=== PATIENT | male | born 1995 | race Caucasian/White ===

== ENCOUNTER 2017-08-27 05:16 | Emergency (ER) | payer OTHER ==
[2017-08-27 05:26] VITALS: BP 146/90; PULSE 100; TEMP 98.2; BMI 39.0
[2017-08-27] MEDS ORDERED: KETOROLAC TROMETHAMINE 60 MG/2 ML VIAL IM ONE (05:36)
[2017-08-27] MEDS ORDERED: CLINDAMYCIN HCL 300 MG CAPSULE PO ONE (05:36)
--- NOTE | 2017-08-27 05:36 | PDOC ---
History of Present Illness - General Chief Complaint: Oral Ulcers Stated Complaint: GUM PAIN Time Seen by Provider: 08/27/17 05:30 History Source: Patient Exam Limitations: No Limitations - History of Present Illness Initial Comments: 08/27/17 05:34 This is a 21-year-old male who comes in complaining of pain in his mouth times a week and a half. Patient has not seen a dentist or her followed up with anybody regarding the pain. Patient denies any fevers or chills. Patient is otherwise healthy. PAST MEDICAL HISTORY: no significant history PAST SURGICAL HISTORY: no significant history FAMILY HISTORY: no pertinant history SOCIAL HISTORY: Pt lives with family and is employed. MEDICATIONS: reviewed ALLERGIES: As per nursing notes Review of Systems General: No fevers or chills, no weakness, no weight loss HEENT: No change in vision. No sore throat,. No ear pain, mouth pain CardioVascular: No chest pain or shortness of breath Respiratory:No cough, or wheezing. Gastrointestinal: no nausea, vomitting, diarrhea or constipation, No rectal bleeding Genitourinary: No dysuria, hematuria, or frequency Musculoskeletal: No joint or muscle pain or swelling Neurologic: No headache, vertigo, dizziness or loss of consciousness Psychiatric: nor depression Skin: No rashes or easy bruising Endocrine: no increased thirst or abnormal weight change Allergic: no skin or latex allergy All other systems reviewed and normal GENERAL: The patient is awake, alert, and fully oriented, in no acute distress. HEAD: Normal with no signs of trauma. Mouth: Teeth are intact however there is a dental carry posterior bottom teeth on the right. On examination of the periodontal structures appear to be intact however there is some tenderness and mild erythema of the periodontal tissue on the right side patient's mouth. There is no abscess or drainage. EYES: Pupils equal, round and reactive to light, extraocular movements intact, sclera anicteric, conjunctiva clear. EXTREMITIES: Normal range of motion, no edema. NEUROLOGICAL: Normal speech, normal gait. grossly intact PSYCH: Normal mood, normal affect. SKIN: Warm, Dry, normal turgor, no rashes or lesions noted. Assessment and plan: This is a 21-year-old male with mouth pain there may be a mild early periodontal infection. However patient said he is unable to see his dentist until next week so will give him a short course of antibiotics and some anti-inflammatories and have him follow-up with his dentist next week Past History - Past Medical History Allergies/Adverse Reactions: Allergies Allergy/AdvReac Type Severity Reaction Status Date / Time No Known Allergies Allergy Verified 07/31/15 14:05 Home Medications: Ambulatory Orders Clindamycin [Cleocin -] 300 mg PO Q6HPO #28 capsule 08/27/17 Methimazole 20 mg PO DAILY 08/27/17 Naproxen [Naprosyn] 500 mg PO BID #14 tablet 08/27/17 COPD: No Diabetes: Yes (borderline) Thyroid Disease: Yes (HYPO) - Immunization History Td Vaccination: No Immunization Up to Date: Yes - Suicide/Smoking/Psychosocial Hx Smoking Status: No Smoking History: Never smoked Years of Tobacco Use: 0 Have you smoked in the past 12 months: No Number of Cigarettes Smoked Daily: 0 Cigars Per Day: 0 Information on smoking cessation initiated: No Hx Alcohol Use: No Drug/Substance Use Hx: No Substance Use Type: None *Physical Exam - Vital Signs Last Vital Signs Temp Pulse Resp BP Pulse Ox 98.2 F 100 H 14 146/90 95 08/27/17 05:20 08/27/17 05:20 08/27/17 05:20 08/27/17 05:20 08/27/17 05:20 *DC/Admit/Observation/Transfer Diagnosis at time of Disposition: Periodontal disease - Discharge Dispostion Disposition: HOME Condition at time of disposition: Good Admit: No - Referrals - Patient Instructions Additional Instructions: For the pain take naproxen 1 tablet twice a day as needed. For the infection take clindamycin 1 tablet 4 times a day. Follow-up with your dentist as soon as possible this week if possible. Return to the emergency department immediately with ANY new, persistent or worsening symptoms. Continue any medications as previously prescribed by your physician. You should follow up with your primary doctor as soon as possible regarding today's emergency department visit. . Please make sure your doctor reviews the results of your emergency evaluation. Thank you for coming to the Emergency Department today for your care. It was a pleasure to see you today. Please note that your evaluation is INCOMPLETE until you follow-up with your doctor. - Post Discharge Activity
== END 2017-08-27 05:48 | disposition home or self-care (01) ==
LOC: FER 05:16
PROC: 3E0233Z Introduction of Anti-inflammatory into Muscle, Percutaneous Approach (ICD-10-PCS; principal; 2017-08-27)
DX: K05.6 Periodontal disease, unspecified (principal)
CPT/HCPCS: 99282-25

== ENCOUNTER 2018-07-22 01:36 | Emergency (ER) | payer OTHER ==
[2018-07-22 01:41] VITALS: BP 161/90; PULSE 84; TEMP 97.5; BMI 34.8
[2018-07-22] MEDS ORDERED: CLINDAMYCIN HCL 300 MG CAPSULE PO ONE (01:49)
--- NOTE | 2018-07-22 01:49 | PDOC ---
History of Present Illness - General Chief Complaint: Toothache Stated Complaint: "MY TOOTH HURTS" Time Seen by Provider: 07/22/18 01:43 History Source: Patient Exam Limitations: No Limitations - History of Present Illness Initial Comments: 07/22/18 01:53 This is a 22-year-old male who comes in complaining of dental pain 1 day. Patient took naproxen prior to coming in. Patient otherwise is healthy. Patient has a history of dental pain in the past for which he is seeing a dentist. Allergies: None Past Medical History: none Social history: Lives with family. No smoking. No alcohol. No illicit drugs. Surgical history: None General: No fevers or chills, no weakness, no weight loss HEENT: No change in vision. No sore throat,. No ear pain CardioVascular: no chest discomfort. No shortness of breath Respiratory:No cough, or wheezing. Gastrointestinal: no nausea, vomiting, diarrhea or constipation, No rectal bleeding Genitourinary: No dysuria, hematuria, or frequency Musculoskeletal: No joint or muscle pain or swelling Neurologic: No headache, vertigo, dizziness or loss of consciousness Psychiatric: nor depression Skin: No rashes or easy bruising Endocrine: no increased thirst or abnormal weight change Allergic: no skin or latex allergy All other systems reviewed and normal GENERAL: The patient is awake, alert, and fully oriented, in no acute distress. HEAD: Normal with no signs of trauma. Teeth: There is a large dental caries in the left lower first molar. There is some tenderness of the periorbital tissues. EYES: Pupils equal, round and reactive to light, extraocular movements intact, sclera anicteric, conjunctiva clear. EXTREMITIES:atraumatic, Normal range of motion, no edema. NEUROLOGICAL: Normal speech, normal gait. PSYCH: Normal mood, normal affect. SKIN: Warm, Dry, normal turgor, no rashes or lesions noted. Assessment and plan: This is a 22-year-old male who comes in complaining of dental pain. Patient does have a large dental carry in his left lower first molar. It does appear that it is been there for some time. Patient was given Toradol and will follow-up with his dentist in the morning. Patient was also started on clindamycin as there was some erythema and tenderness to the area Past History - Past Medical History Allergies/Adverse Reactions: Allergies Allergy/AdvReac Type Severity Reaction Status Date / Time No Known Allergies Allergy Verified 07/31/15 14:05 Home Medications: Ambulatory Orders Clindamycin [Cleocin -] 600 mg PO Q6H #28 capsule 07/22/18 Naproxen [Naprosyn] 500 mg PO BID #20 tablet 07/22/18 COPD: No Diabetes: Yes (borderline) Thyroid Disease: Yes (HYPO) - Immunization History Td Vaccination: No Immunization Up to Date: Yes - Suicide/Smoking/Psychosocial Hx Smoking Status: No Smoking History: Unknown if ever smoked Years of Tobacco Use: 0 Have you smoked in the past 12 months: No Number of Cigarettes Smoked Daily: 0 Cigars Per Day: 0 Information on smoking cessation initiated: No Hx Alcohol Use: No Drug/Substance Use Hx: No Substance Use Type: None *Physical Exam - Vital Signs Last Vital Signs Temp Pulse Resp BP Pulse Ox 97.5 F L 84 14 161/90 97 07/22/18 01:39 07/22/18 01:39 07/22/18 01:39 07/22/18 01:39 07/22/18 01:39 *DC/Admit/Observation/Transfer Diagnosis at time of Disposition: Dentalgia - Discharge Dispostion Disposition: HOME Condition at time of disposition: Good Decision to Admit order: No - Prescriptions Prescriptions: Clindamycin [Cleocin -] 600 mg PO Q6H #28 capsule Naproxen [Naprosyn] 500 mg PO BID #20 tablet - Referrals Referrals: Noemi Wang MD [Primary Care Provider] - - Patient Instructions Printed Discharge Instructions: DI for Tooth Decay, DI for Dental Pain Additional Instructions: . Clindamycin 1 tablet 4 times a day with food. Take naproxen twice daily for the pain in addition to that if he needed something in between doses U can take Tylenol as often as every 4-6 hours. Call your dentist Thursday morning and get an appointment as soon as possible. Return to the emergency department immediately with ANY new, persistent or worsening symptoms. Continue any medications as previously prescribed by your physician. You should follow up with your primary doctor as soon as possible regarding today's emergency department visit. . Please make sure your doctor reviews the results of your emergency evaluation. Thank you for coming to the Emergency Department today for your care. It was a pleasure to see you today. Please note that your evaluation is INCOMPLETE until you follow-up with your doctor. - Post Discharge Activity
[2018-07-22] MEDS ORDERED: ACETAMINOPHEN 500 MG TABLET (FP) ONE (01:51)
[2018-07-22] MEDS ORDERED: CLINDAMYCIN HCL 150 MG CAPSULE (FP) ONE (01:51)
[2018-07-22] MEDS ORDERED: ACETAMINOPHEN 500 MG TABLET (FP) PO ONE (01:55)
== END 2018-07-22 02:00 | disposition home or self-care (01) ==
LOC: FER 01:36
DX: K08.89 Other specified disorders of teeth and supporting structures (principal); E03.9 Hypothyroidism, unspecified; R73.03 Prediabetes
CPT/HCPCS: 99282-25

== ENCOUNTER 2018-09-14 18:21 | Day surgery (SDC) | payer BC ==
[2018-09-14] MEDS ORDERED: morphine SULFATE 4 MG/ML VIAL ONE (18:50)
[2018-09-14] MEDS ORDERED: ONDANSETRON 4 MG/2 ML VIAL ONE (18:52)
[2018-09-14 19:23] LABS: PH,URINE 8.5 (4.5-8); URINE APPEARANCE Clear; URINE BILIRUBIN Negative (NEGATIVE); URINE COLOR Yellow; URINE GLUCOSE (UA) Negative (NEGATIVE); URINE KETONE Negative (NEGATIVE); URINE LEUK ESTERASE Negative (NEGATIVE); URINE NITRITE Negative (NEGATIVE); URINE PROTEIN Negative (NEGATIVE); URINE UROBILINOGEN 0.2 (0.2-1.0)
[2018-09-14 19:30] LABS: BASO % 0.1 % (0-2.0); EOS % 0.5 % (0-4.5); HEMATOCRIT 45.8 % (35.4-49); HEMOGLOBIN 14.8 GM/dl (11.7-16.9); LYMPH % 10.1 % (8-40); MCH 25.9 pg (25.7-33.7); MCHC 32.3 g/dl (32.0-35.9); MEAN CELL VOLUME 80.1 fl (80-96); MEAN PLT VOLUME 7.3 fl (7.5-11.1); MONO % 9.1 % (3.8-10.2); NEUT % 80.2 % (42.8-82.8); PLATELET COUNT 301 K/MM3 (134-434); RBC 5.71 M/mm3 (4.00-5.60); RDW 12.8 % (11.9-15.9); WHITE BLOOD COUNT 14.8 K/mm3 (4.0-10.8)
[2018-09-14 19:34] LABS: URINE BACTERIA 1+ /hpf (NEGATIVE); URINE WBC 0-2 (0-2)
[2018-09-14] MEDS ORDERED: morphine CARPU-JECT 4 MG/1 ML DISP.SYRIN IVPUSH ONE (19:38)
[2018-09-14] MEDS ORDERED: SODIUM CHLORIDE 1,000 ML IV ONE ×2 (19:38→21:02)
[2018-09-14] MEDS ORDERED: ONDANSETRON 4 MG/2 ML VIAL IVPB ONE (19:38)
--- NOTE | 2018-09-14 19:38 | PDOC ---
History of Present Illness - History of Present Illness Initial Comments: 09/14/18 20:11 Patient is a 22 year old male with a significant past medical history of who presents to the ED with complaints of abdominal pain that began this morning. Patient reports experiencing right lower quadrant pain that he states has increased in intensity over time, prompting him to come into the ED for further evaluation. He reports taking pepto bismol for the abdominal pain with no relief. Patient reports experiencing intermittent episodes of diarrhea and dysuria since this morning. Denies chest pain, sob. Denies nausea, vomiting, Denies fevers, chills. Denies dysuria, hematuria. Denies trauma to affected area. Denies loss of consciousness. Denies constipation, diarrhea. Denies contact with sick individuals, out of state travelling. Denies any other symptoms. Allergies: None Social history: Lives with mother. Surgical history: None PMD: None Adult ROS General: No fevers or chills, no weakness, no weight loss HEENT: No change in vision. No sore throat, No ear pain Cardiovascular: No chest pain or shortness of breath Respiratory:No cough, or wheezing. Gastrointestinal: +Abdominal pain. +diarrhea. No nausea, vomiting, or constipation, No rectal bleeding Genitourinary: +Dysuria. No hematuria, or frequency Musculoskeletal: No joint or muscle pain or swelling Neurologic: No headache, vertigo, dizziness or loss of consciousness Psychiatric: No depression Skin: No rashes or easy bruising Endocrine: No increased thirst or abnormal weight change Allergic: No skin or latex allergy All other systems reviewed and normal Adult PE General: Well-nourished well-developed individual, no acute distress HEENT: Throat: Normal, tonsils normal, no erythema or exudate Neck: Supple, no meningeal signs, no lymphadenopathy Eyes:Pupils equal reactive and round, extraocular motion intact Chest: Nontender to palpation Cardiac: S1-S2 normal, regular rate and rhythm, no murmurs rubs or gallops Respiratory: Lungs clear to auscultation bilateral Abdomen: +Moderate tenderness to abdominal RLQ. +guarding. Soft, nondistended, normal bowel sounds, nontender to palpation diffusely Extremities: Warm, dry, no cyanosis, clubbing, or edema Skin: No rashes Neuro: Alert and oriented x3, nonfocal exam, grossly intact, normal gait Psych: Normal mood and affect <Bassam Mcdanielew - Last Filed: 09/14/18 20:11> - General History Source: Patient Exam Limitations: No Limitations - History of Present Illness Initial Comments: 09/14/18 19:57 A portion of this note was documented by scribe services under my direction. I have reviewed the details of the note, within reason, and agree with the documentation with the following case summary and management plan written by me. Patient treated in the ED. Nursing notes are reviewed and incorporated into the medical decision-making. Vital signs reviewed. Assessment and plan: This is a 22-year-old male who comes in complaining of right lower quadrant abdominal pain that began this morning. Pain was initially epigastric and periumbilical and then became right lower quadrant. Patient has had some nausea and vomiting as well as 1 loose stool. Workup initiated including CBC, comp, UA, pain medication, fluids, antiemetics and CT abdomen and pelvis 09/14/18 21:17 Reevaluation Patient has a fever so was given Tylenol IV in addition to that his CAT scan was positive for acute appendicitis. Zosyn ordered and surgery. Patient will be admitted to an inpatient bed for removal of his appendix. <Mervat Childers I - Last Filed: 09/14/18 21:19> - General Chief Complaint: Pain Stated Complaint: RT LOWER ABD PAIN Time Seen by Provider: 09/14/18 19:38 Past History <VioletaScot - Last Filed: 09/14/18 20:11> - Past Medical History COPD: No Diabetes: Yes (borderline) Thyroid Disease: Yes (HYPO) - Immunization History Td Vaccination: No Immunization Up to Date: Yes - Suicide/Smoking/Psychosocial Hx Smoking Status: No Smoking History: Never smoked Years of Tobacco Use: 0 Have you smoked in the past 12 months: No Number of Cigarettes Smoked Daily: 0 Cigars Per Day: 0 Information on smoking cessation initiated: No Hx Alcohol Use: No Drug/Substance Use Hx: No Substance Use Type: None <Mervat Childers I - Last Filed: 09/14/18 21:19> - Past Medical History Allergies/Adverse Reactions: Allergies Allergy/AdvReac Type Severity Reaction Status Date / Time No Known Allergies Allergy Verified 09/14/18 18:22 Home Medications: Ambulatory Orders Bismuth Subsalicylate [Pepto-Bismol -] 524 mg PO PRN PRN 09/14/18 Methimazole 10 mg PO BID 09/14/18 *Physical Exam - Vital Signs Last Vital Signs Temp Pulse Resp BP Pulse Ox 99.5 F 100 H 20 137/77 100 09/14/18 18:22 09/14/18 18:22 09/14/18 18:22 09/14/18 18:22 09/14/18 18:22 <Scot Mcdaniel - Last Filed: 09/14/18 20:11> - Vital Signs Last Vital Signs Temp Pulse Resp BP Pulse Ox 99.5 F 100 H 20 137/77 100 09/14/18 18:22 09/14/18 18:22 09/14/18 18:22 09/14/18 18:22 09/14/18 18:22 <Mervat Childers I - Last Filed: 09/14/18 21:19> Moderate Sedation - Procedure Monitoring Vital Signs: Procedure Monitoring Vital Signs Temperature 99.5 F 09/14/18 18:22 Pulse Rate 100 H 09/14/18 18:22 Respiratory Rate 20 09/14/18 18:22 Blood Pressure 137/77 09/14/18 18:22 O2 Sat by Pulse Oximetry (%) 100 09/14/18 18:22 <Scot Mcdaniel - Last Filed: 09/14/18 20:11> - Procedure Monitoring Vital Signs: Procedure Monitoring Vital Signs Temperature 99.5 F 09/14/18 18:22 Pulse Rate 100 H 09/14/18 18:22 Respiratory Rate 20 09/14/18 18:22 Blood Pressure 137/77 09/14/18 18:22 O2 Sat by Pulse Oximetry (%) 100 09/14/18 18:22 <Mervat Childers I - Last Filed: 09/14/18 21:19> ED Treatment Course - LABORATORY CBC & Chemistry Diagram: 09/14/18 19:00 09/14/18 19:00 - ADDITIONAL ORDERS Additional order review: Laboratory Results 09/14/18 09/14/18 19:00 19:00 Sodium 135 L Potassium 3.4 L Chloride 101 Carbon Dioxide 25 Anion Gap 9 BUN 12 Creatinine 0.6 Creat Clearance w eGFR > 60 Random Glucose 92 Calcium 9.1 Total Bilirubin 0.8 AST 27 ALT 58 H D Alkaline Phosphatase 121 H Total Protein 6.6 Albumin 3.7 Urine Color Yellow Urine Appearance Clear Urine pH 8.5 H Ur Specific [place] 1.015 Urine Protein Negative Urine Glucose (UA) Negative Urine Ketones Negative Urine Blood Trace-intact H Urine Nitrite Negative Urine Bilirubin Negative Urine Urobilinogen 0.2 Ur Leukocyte Esterase Negative Urine RBC 2-5 Urine WBC 0-2 Urine Bacteria 1+ 09/14/18 19:00 RBC 5.71 H MCV 80.1 MCHC 32.3 RDW 12.8 D MPV 7.3 L Neutrophils % 80.2 Lymphocytes % 10.1 D Monocytes % 9.1 Eosinophils % 0.5 Basophils % 0.1 - Medications Given in the ED: ED Medications Discontinued Medications Generic Name Dose Route Start Last Admin Trade Name Moy PRN Reason Stop Dose Admin Morphine Sulfate 4 mg 09/14/18 19:38 09/14/18 19:42 Morphine Injection - IVPUSH 09/14/18 19:39 4 mg ONCE ONE Administration Ondansetron HCl 4 mg 09/14/18 19:38 09/14/18 19:43 Zofran Injection IVPB 09/14/18 19:39 4 mg ONCE ONE Administration <Scot Mcdaniel - Last Filed: 09/14/18 20:11> - LABORATORY CBC & Chemistry Diagram: 09/14/18 19:00 09/14/18 19:00 - ADDITIONAL ORDERS Additional order review: Laboratory Results 09/14/18 19:00 Urine Color Yellow Urine Appearance Clear Urine pH 8.5 H Ur Specific [place] 1.015 Urine Protein Negative Urine Glucose (UA) Negative Urine Ketones Negative Urine Blood Trace-intact H Urine Nitrite Negative Urine Bilirubin Negative Urine Urobilinogen 0.2 Ur Leukocyte Esterase Negative Urine RBC 2-5 Urine WBC 0-2 Urine Bacteria 1+ 09/14/18 19:00 RBC 5.71 H MCV 80.1 MCHC 32.3 RDW 12.8 D MPV 7.3 L Neutrophils % 80.2 Lymphocytes % 10.1 D Monocytes % 9.1 Eosinophils % 0.5 Basophils % 0.1 <Mervat Childers I - Last Filed: 09/14/18 21:19> *DC/Admit/Observation/Transfer - Attestations Scribe Attestion: 09/14/18 20:11 Documentation prepared by Scot Mcdaniel, acting as medical technologist blood bank for Mervat Childers MD. <Scot Mcdaniel - Last Filed: 09/14/18 20:11> - Discharge Dispostion Decision to Admit order: Yes <Mervat Childers I - Last Filed: 09/14/18 21:19> Diagnosis at time of Disposition: Acute appendicitis Qualifiers: Acute appendicitis type: unspecified acute appendicitis type Qualified Code(s) : K35.80 - Unspecified acute appendicitis
[2018-09-14 19:45] LABS: ALBUMIN 3.7 g/dl (3.5-5.0); ALK PHOS 121 U/L (32-92); ANION GAP 9 MMOL/L (8-16); BILIRUBIN,TOTAL 0.8 mg/dl (0.2-1.0); BLOOD UREA NITROGEN 12 mg/dl (7-18); CALCIUM 9.1 mg/dl (8.4-10.2); CHLORIDE 101 mmol/L (98-107); CO2 25 mmol/L (22-28); CREATININE 0.6 mg/dl (0.6-1.3); GLUCOSE,RANDOM 92 mg/dl (74-106); POTASSIUM 3.4 mmol/L (3.5-5.1); SGOT/AST 27 U/L (10-42); SGPT/ALT 58 U/L (10-40); SODIUM 135 mmol/L (136-145); TOT PROT 6.6 g/dl (6.4-8.3)
[2018-09-14] MEDS ORDERED: ACETAMINOPHEN INJECTION 100 ML IVPB ONE (20:48)
[2018-09-14] MEDS ORDERED: ACETAMINOPHEN 500 MG TABLET (FP) PO ONE (21:02)
[2018-09-14] MEDS ORDERED: ACETAMINOPHEN 1000 MG/100 ML VIAL (NON FORMULARY) IVPB ONE (21:03)
[2018-09-14] MEDS ORDERED: PIPERACILLIN/TAZOB 4.5 GM 4.5 GM in DEXTROSE 5%-WATER 100 ML IVPB ONE (21:16)
[2018-09-14] MEDS ORDERED: PIPERACILLIN/TAZOBACTAM 4.5 GM VIAL IVPB ONE (21:17)
[2018-09-14] MEDS ORDERED: ONDANSETRON 4 MG/2 ML VIAL IVPUSH PRN (21:58)
[2018-09-14] MEDS ORDERED: morphine SULFATE 4 MG/ML VIAL IVPUSH PRN (21:58)
--- NOTE | 2018-09-14 21:58 | HP ---
Admitting History and Physical - Admission Chief Complaint: abdominal pain History of Present Illness: 22 yo male with PMH hyperthroidism, obesity presents to the ED with complaints of abdominal pain that began this morning. Patient reports experiencing right lower quadrant pain that he states has increased in intensity over time, prompting him to come into the ED for further evaluation. He reports taking peptobismol for the abdominal pain with no relief. Patient reports experiencing intermittent episodes of diarrhea and dysuria since this morning. we were asked to assess. History Source: Patient, Medical Record Limitations to Obtaining History: No Limitations - Past Medical History Endocrine: Yes: Hyperthyroidism - Smoking History Smoking history: Never smoked Have you smoked in the past 12 months: No Aproximately how many cigarettes per day: 0 - Alcohol/Substance Use Hx Alcohol Use: No Home Medications - Allergies Allergies/Adverse Reactions: Allergies Allergy/AdvReac Type Severity Reaction Status Date / Time No Known Allergies Allergy Verified 09/14/18 18:22 - Home Medications Home Medications: Ambulatory Orders Bismuth Subsalicylate [Pepto-Bismol -] 524 mg PO PRN PRN 09/14/18 Methimazole 10 mg PO BID 09/14/18 Review of Systems - Review of Systems Constitutional: denies: Chills, Fever Eyes: denies: Blind Spots, Recent Change in Vision HENT: denies: Difficult Swallowing, Ocular Prosthesis, Throat Pain Neck: denies: Pain on Movement, Swollen Glands, Tenderness Respiratory: denies: Cough, SOB Gastrointestinal: denies: Abdominal Pain, Nausea Genitourinary: denies: Discharge, Dysuria Breasts: reports: No Symptoms Reported. denies: Pain Musculoskeletal: denies: Joint Swelling, Muscle Cramps, Muscle Weakness Integumentary: denies: Eczema, Lesions, Pruritis Neurological: denies: Confusion, Seizure, Syncope Endocrine: denies: Unexplained Weight Gain, Unexplained Weight Loss Hematology/Lymphatic: denies: Easily Bruised, Excessive Bleeding Psychiatric: denies: Anxiety, Depression Physical Examination Vital Signs: Vital Signs Temperature 99.3 F 09/14/18 21:54 Pulse Rate 97 H 09/14/18 21:54 Respiratory Rate 16 09/14/18 21:54 Blood Pressure 115/48 L 09/14/18 21:54 O2 Sat by Pulse Oximetry (%) 98 09/14/18 21:54 Vital Signs Period Temp Pulse Resp BP Sys/Steinberg Pulse Ox Last 24 Hr 98.3 F-100.9 F 84-106 16-20 115-147/48-77 95-100 Constitutional: Yes: Well Nourished, No Distress, Calm, Obese Eyes: Yes: Conjunctiva Clear, EOM Intact HENT: Yes: Atraumatic, Normocephalic Neck: Yes: Supple, Trachea Midline Cardiovascular: Yes: Regular Rate and Rhythm, S1, S2 Respiratory: Yes: Regular, CTA Bilaterally Gastrointestinal: Yes: Normal Bowel Sounds, Soft, Abdomen, Obese, Tenderness, Rebound. No: Tenderness (RLQ), Tenderness, Epigastrium ...Rectal Exam: Yes: Deferred Renal/: No: CVA Tenderness - Left, CVA Tenderness - Right Breast(s): No: Mass, Skin Changes Musculoskeletal: No: Joint Stiffness, Muscle Pain, Muscle Weakness Extremities: No: Cold, Cool Edema: No Peripheral Pulses WNL: Yes Peripheral Pulses: Left Radial: 2+, Right Radial: 2+, Left Doralis Pedis: 2+, Right Dorsalis Pedis: 2+, Left Femoral: 2+, Right Femoral: 2+ Integumentary: No: Jaundice, Rash, Skin Tear Neurological: Yes: Alert, Oriented Psychiatric: Yes: Alert, Oriented Labs: CBC, BMP 09/14/18 19:00 09/14/18 19:00 Imaging - Results Cat Scan: Report Reviewed, Image Reviewed Problem List - Problems (1) Acute appendicitis with localized peritonitis Assessment/Plan: 22 yo male acute appendicitis with localized peritonitis NPO and IVF hydration IV antibiotics analgesia Discussed with patient risks, benefits and alternatives of laparoscopic possible open appendectomy, including but not limited to bleeding, infection, injury to adjacent structures, leak or injury, intraabdominal abscess, incisional hernia, need for further procedures, ; alternatives include antibiotics, delayed or no surgery - risks of this include failure of nonoperative therapy, perforation, sepsis, recurrence, . Patient desires to proceed with operation - will take to OR for above. Informed consent signed for same. Code(s): K35.30 - ACUTE APPENDICITIS WITH LOC PERITONITIS, W/O PERF OR GANGR Qualifiers: Appendicitis gangrene presence: without gangrene Appendicitis perforation presence: without perforation Appendicitis abscess presence: without abscess Qualified Code(s): K35.30 - Acute appendicitis with localized peritonitis, without perforation or gangrene (2) Hyperthyroidism Code(s): E05.90 - THYROTOXICOSIS, UNSP WITHOUT THYROTOXIC CRISIS OR STORM (3) Acute appendicitis Code(s): K35.80 - UNSPECIFIED ACUTE APPENDICITIS Qualifiers: Acute appendicitis type: unspecified acute appendicitis type Qualified Code (s): K35.80 - Unspecified acute appendicitis (4) Periodontal disease Code(s): K05.6 - PERIODONTAL DISEASE, UNSPECIFIED (5) RLQ abdominal pain Code(s): R10.31 - RIGHT LOWER QUADRANT PAIN
[2018-09-14] MEDS ORDERED: LACTATED RINGERS SOLUTION 1,000 ML IV SCH (22:00)
[2018-09-14 22:02] LABS: LIPASE 134 U/L (73-393)
[2018-09-14] MEDS ORDERED: ACETAMINOPHEN 1000 MG/100 ML VIAL (NON FORMULARY) IVPB PRN (22:04)
[2018-09-14 23:30] VITALS: BMI 35.1
[2018-09-15] MEDS ORDERED: CEFOXITIN SODIUM 2 GM in DEXTROSE 5%-WATER - 100 ML IVPB ONE ×2 (04:00→12:00)
[2018-09-15 08:00] LABS: HEMATOCRIT 41.1 % (35.4-49); HEMOGLOBIN 13.6 GM/dl (11.7-16.9); MCH 26.5 pg (25.7-33.7); MEAN CELL VOLUME 80.2 fl (80-96); MEAN PLT VOLUME 7.7 fl (7.5-11.1); PLATELET COUNT 282 K/MM3 (134-434); RBC 5.12 M/mm3 (4.00-5.60); RDW 13.2 % (11.9-15.9)
[2018-09-15 08:13] LABS: ANION GAP 6 MMOL/L (8-16); BLOOD UREA NITROGEN 13 mg/dl (7-18); CALCIUM 8.8 mg/dl (8.4-10.2); CHLORIDE 107 mmol/L (98-107); CO2 24 mmol/L (22-28); CREATININE 0.6 mg/dl (0.6-1.3); GLUCOSE,RANDOM 80 mg/dl (74-106); POTASSIUM 3.7 mmol/L (3.5-5.1); SODIUM 137 mmol/L (136-145)
[2018-09-15 08:35] LABS: INR 1.48 (0.82-1.09); PROTHROMBIN TIME (PATIENT) 16.4 SEC (10.2-13.0)
--- NOTE | 2018-09-15 08:39 | OP ---
Operative Note - Note: Operative Date: 09/15/18 Pre-Operative Diagnosis: acute appendicitis with localized peritonitis Operation: laparoscopic appendectomy Findings: inflamed appendix small amount of purulent exudate Post-Operative Diagnosis: Same as Pre-op Surgeon: Luther Lira Anesthesiologist/[employer]: Logan Otero Anesthesia: General, Local (0.5% marcaine ) Specimens Removed: appendix Estimated Blood Loss (mls): 10 Drains, Volume Out (mls): 100 (urine out put) Fluid Volume Replaced (mls): 1,000 Operative Report Dictated: Yes
[2018-09-15] MEDS ORDERED: PT OWN MED DRAWER 7, Y5N ONE (11:41)
--- NOTE | 2018-09-15 12:44 | CON.ID ---
Consult Consult Specialty:: infectious diseases Referred by:: Reason for Consultation:: peritonitis,ac appendicitis - History of Present Illness Chief Complaint: abd pain dirrhoea History of Present Illness: 22 yo male with PMH hyperthroidism, obesity admitted with complaints of abdominal pain that began this morning. Patient reports experiencing right lower quadrant pain that he states has increased in intensity over time, prompting him to come into the ED for further evaluation. according to the patient the pain came on suddenly ,he took some pepto but did not help him abd pain associated with dirrhoea patient was evaluated by the surgery department and worked up and found to ahve appendicitis with peritonitis and plan is to take the patient to or for surgery currently he feels a little better - History Source History Provided By: Patient Limitations to Obtaining History: No Limitations - Past Medical History Endocrine: Yes: Hyperthyroidism - Alcohol/Substance Use Hx Alcohol Use: No - Smoking History Smoking history: Never smoked Have you smoked in the past 12 months: No Aproximately how many cigarettes per day: 0 Home Medications - Allergies Allergies/Adverse Reactions: Allergies Allergy/AdvReac Type Severity Reaction Status Date / Time No Known Allergies Allergy Verified 09/14/18 18:22 - Home Medications Home Medications: Ambulatory Orders Bismuth Subsalicylate [Pepto-Bismol -] 524 mg PO PRN PRN 09/14/18 Methimazole 10 mg PO BID 09/14/18 Amox-Tr/K Cl [Augmentin - 875Mg Tablet] 1 tab PO BID #14 tablet 09/15/18 Oxycodone HCl/Acetaminophen [Percocet 5/325 -] 1 tab PO Q6H #40 tab MDD 5 Review of Systems - Review of Systems Constitutional: reports: No Symptoms Eyes: reports: No Symptoms HENT: reports: No Symptoms Neck: reports: No Symptoms Cardiovascular: reports: No Symptoms Respiratory: reports: No Symptoms Gastrointestinal: reports: Abdominal Pain, Diarrhea, Other Genitourinary: reports: Dysuria Musculoskeletal: reports: No Symptoms Integumentary: reports: No Symptoms Neurological: reports: No Symptoms Endocrine: reports: No Symptoms Hematology/Lymphatic: reports: No Symptoms Psychiatric: reports: No Symptoms Physical Exam Vital Signs: Vital Signs Temperature 98.7 F 09/15/18 10:00 Pulse Rate 84 09/15/18 10:00 Respiratory Rate 16 09/15/18 10:00 Blood Pressure 139/61 09/15/18 10:00 O2 Sat by Pulse Oximetry (%) 98 09/15/18 10:00 Constitutional: Yes: Well Nourished, Obese Eyes: Yes: Conjunctiva Clear, EOM Intact HENT: Yes: Atraumatic, Normocephalic Neck: Yes: Supple, Trachea Midline Cardiovascular: Yes: Regular Rate and Rhythm Respiratory: Yes: Regular, CTA Bilaterally Gastrointestinal: Yes: Soft, Hypoactive Bowel Sounds, Tenderness (rlq) Musculoskeletal: Yes: WNL Extremities: Yes: WNL Integumentary: Yes: WNL Neurological: Yes: Alert, Oriented Labs: CBC, BMP 09/15/18 06:00 09/15/18 06:00 Imaging - Results Cat Scan: Report Reviewed, Image Reviewed Assessment/Plan Problem List - Problems (1) Acute appendicitis with localized peritonitis Code(s): K35.30 - ACUTE APPENDICITIS WITH LOC PERITONITIS, W/O PERF OR GANGR Qualifiers: Appendicitis gangrene presence: without gangrene Appendicitis perforation presence: without perforation Appendicitis abscess presence: without abscess Qualified Code(s): K35.30 - Acute appendicitis with localized peritonitis, without perforation or gangrene (2) Hyperthyroidism Code(s): E05.90 - THYROTOXICOSIS, UNSP WITHOUT THYROTOXIC CRISIS OR STORM (3) Acute appendicitis Code(s): K35.80 - UNSPECIFIED ACUTE APPENDICITIS Qualifiers: Acute appendicitis type: unspecified acute appendicitis type Qualified Code (s): K35.80 - Unspecified acute appendicitis (4) Periodontal disease Code(s): K05.6 - PERIODONTAL DISEASE, UNSPECIFIED (5) RLQ abdominal pain Code(s): R10.31 - RIGHT LOWER QUADRANT PAIN plan will switch patient to zosyn patient for or today rest continue as per the team await operative finding
[2018-09-15] MEDS ORDERED: KETAMINE HCL 200 MG/20 ML VIAL ONE (14:37)
[2018-09-15] MEDS ORDERED: MIDAZOLAM HCL 2 MG/2 ML SINGLE DOSE VIAL ONE (14:37)
[2018-09-15] MEDS ORDERED: PROPOFOL 20 ML ONE ×2 (14:37→15:07)
[2018-09-15] MEDS ORDERED: SODIUM CHLORIDE 0.9% P/F 10 ML VIAL IJ ONE (14:38)
[2018-09-15] MEDS ORDERED: DEXAMETHASONE SOD PHOSPHATE 4 MG/1 ML VIAL ONE (14:38)
[2018-09-15] MEDS ORDERED: ceFAZolin SODIUM 1 GM VIAL ONE (14:38)
[2018-09-15] MEDS ORDERED: LIDOCAINE HCL/PF 2% SDV 5ML VIAL ONE (14:38)
[2018-09-15] MEDS ORDERED: ROCURONIUM BROMIDE 50 MG/5 ML VIAL ONE ×2 (14:41→15:33)
[2018-09-15] MEDS ORDERED: ESMOLOL HCL 100,000 MCG/10 ML VIAL ONE (14:47)
[2018-09-15] MEDS ORDERED: BUPIVACAINE HCL/PF (5 MG/ML) 30 ML VIAL IJ ONE (15:01)
[2018-09-15] MEDS ORDERED: NEOSTIGMINE METHYLSULFATE 0.5 MG/ML - 10 ML MDV ONE (15:44)
[2018-09-15] MEDS ORDERED: LACTATED RINGERS SOLUTION 1,000 ML IV SCH (16:49)
[2018-09-15] MEDS ORDERED: ONDANSETRON 4 MG/2 ML VIAL IVPUSH PRN (16:49)
[2018-09-15] MEDS ORDERED: CEFOXITIN SODIUM/DEXTROSE,ISO 2 GM/50 ML BAG IVPB ONE (18:00)
[2018-09-15] MEDS ORDERED: PIPERACILLIN/TAZOB 4.5 GM 4.5 GM in DEXTROSE 5%-WATER 100 ML IVPB SCH (18:00)
[2018-09-15] MEDS: morphine SULFATE 4 MG/ML VIAL IVPUSH PRN (20:48)
[2018-09-16] MEDS ORDERED: PIPERACILLIN/TAZOBACTAM 4.5 GM VIAL IVPB ONE ×2 (01:31→08:25)
[2018-09-16] MEDS ORDERED: DEXTROSE 5%-WATER 100 ML IVPB ONE ×2 (01:32→08:25)
[2018-09-16] MEDS: morphine SULFATE 4 MG/ML VIAL IVPUSH PRN (01:36)
[2018-09-16] MEDS: PIPERACILLIN/TAZOB 4.5 GM 4.5 GM in DEXTROSE 5%-WATER 100 ML IVPB SCH ×3 (01:37→09:08)
--- NOTE | 2018-09-16 08:42 | DS ---
Physical Examination Vital Signs: Vital Signs Temperature 97.9 F 09/16/18 06:33 Pulse Rate 93 H 09/16/18 06:33 Respiratory Rate 20 09/16/18 06:33 Blood Pressure 137/62 09/16/18 06:33 O2 Sat by Pulse Oximetry (%) 98 09/15/18 21:00 Constitutional: Yes: Well Nourished, No Distress, Calm Eyes: Yes: Conjunctiva Clear, EOM Intact HENT: Yes: Atraumatic, Normocephalic Neck: Yes: Supple, Trachea Midline Cardiovascular: Yes: Regular Rate and Rhythm, S1, S2 Respiratory: Yes: Regular, CTA Bilaterally Gastrointestinal: Yes: Normal Bowel Sounds, Soft. No: Tenderness ...Rectal Exam: Yes: Deferred Renal/: No: CVA Tenderness - Left, CVA Tenderness - Right Musculoskeletal: No: Muscle Pain, Muscle Weakness Extremities: No: Amputation, Cool, Cyanosis Edema: No Peripheral Pulses WNL: Yes Peripheral Pulses: Left Radial: 2+, Right Radial: 2+, Left Doralis Pedis: 2+, Right Dorsalis Pedis: 2+, Left Femoral: 2+, Right Femoral: 2+ Wound/Incision: Yes: Clean/Dry, Well Approximated, Dressing Dry and Intact Neurological: Yes: Alert, Oriented Psychiatric: Yes: Alert, Oriented Labs: CBC, BMP 09/15/18 06:00 09/15/18 06:00 Discharge Summary Reason For Visit: ACUTE APPENDICITIS Current Active Problems Acute appendicitis (Acute) Acute appendicitis with localized peritonitis (Acute) Hyperthyroidism (Acute) RLQ abdominal pain (Acute) Procedures: Principal: laparoscopic appendectomy Hospital Course: admitted for an emergency procedure. uneventful procedure. stable for discharge home. Condition: Improved - Instructions Diet, Activity, Other Instructions: Postoperative instructions: You had a laparoscopic appendectomy on 09/15/[address] Luther Thompson of [facility]. Activity: Resume your usual activities gradually, but no heavy exertion or lifting more than 10-15 pounds for 1 month. Remove dressings 48 hours after surgery; sticky tapes underneath will fall off by themselves. You may shower daily starting then, just pat the incision areas dry. No bath or swimming until skin incisions have healed. Eat lightly at first, but advance to your usual diet as tolerated. Pain: For pain, you may use and alternate Tylenol (acetaminophen) 1-2 pills and/ or ibuprofen 200 mg (1-3 pills) every 6 hours each as needed; this means that you can take one OR the other at 3-hour intervals. If you are prescribed a Tylenol/narcotic combination for severe pain, use it instead of plain Tylenol as needed and switch back when your pain starts decreasing. Do not take more than 4000mg of acetaminophen in a day. Take medications as prescribed or indicated on the labeling. Follow-up: Call Dr. Lira' office at [phone] to make your postop appointment (Thursday in approximately 2 weeks after surgery). Clinic is held in the [facility] on the first floor of [facility]. Call the office if you have: * increasing pain not responsive to pain medication * fever of 101F or higher * unusual or increasing bleeding or drainage from wounds * increasing redness or swelling at wound sites Also, see your primary medical doctor within 1-2 weeks. Disposition: HOME - Home Medications Comprehensive Discharge Medication List: Ambulatory Orders Bismuth Subsalicylate [Pepto-Bismol -] 524 mg PO PRN PRN 09/14/18 Methimazole 10 mg PO BID 09/14/18 Amox-Tr/K Cl [Augmentin - 875Mg Tablet] 1 tab PO BID #14 tablet 09/15/18 Oxycodone HCl/Acetaminophen [Percocet 5/325 -] 1 tab PO Q6H #40 tab MDD 5
--- NOTE | 2018-09-16 09:53 | OP ---
DATE OF OPERATION: 09/15/2018 PREOPERATIVE DIAGNOSIS: Acute appendicitis with localized peritonitis. POSTOPERATIVE DIAGNOSIS: Acute appendicitis with localized peritonitis. PROCEDURE: Laparoscopic appendectomy. ATTENDING SURGEON: Luther Lira MD HUMAN RESOURCES OFFICER: No one. ANESTHESIOLOGIST: Logan Otero CRNA ANESTHESIA TYPE: General with local. Local consisted of 0.5% Marcaine, a total of 10 mL given in an area block fashion at the port sites. SPECIMEN REMOVED: Appendix. ESTIMATED BLOOD LOSS: 10 mL INTRAVENOUS FLUID ADMINISTERED: Crystalloid 1000 mL. DRAINS: Lewis; 100 mL of concentrated urine removed postoperatively. BRIEF FINDINGS: Patient had an inflamed appendix with a small amount of purulent exudate on the surface. Hemostasis was surgical. INDICATION: Patient is a 22-year-old male presenting with right lower quadrant pain x1 day, some fever. He had leukocytosis to 14,000. CT scan confirmed the presence of acute appendicitis. He was counseled regarding risks, benefits, and alternatives of surgical appendectomy, signed informed consent, and was taken for procedure. DESCRIPTION OF PROCEDURE: Patient was brought to the operating room. He was placed in supine position on the operating table. Lower extremities had SCDs placed to compression; patient receiving intravenous antibiotics already prior to surgery. He was induced with general anesthesia, endotracheally intubated. Anterior abdominal wall was shaved, prepped, and draped with this area prepped into a standard surgical field. A formal timeout was completed, identifying the operative site and procedure. With all parties in agreement, I began first with an infraumbilical approach in the midline of the rectus. It was incised with a 15-blade scalpel, deepened and widened through the subcutaneous tissue. Care was taken to dissect down to the midline raphe. At which point, the fascia had a 0 Vicryl laid in, [id number] for postoperative ablation of the site. Blunt entry was made into the abdomen. At which point, we installed a pneumoperitoneum to 15 mmHg. The laparoscope was then used to inspect and allow for additional port sites at the suprapubic position as well as the left lower quadrant. Both were done under direct visualization. We then positioned the patient into a steep Trendelenburg with a slight rotation with the left side down. We inspected the cecum, and the appendix was immediately identified. It was grasped in the mid-body, and then, the base was identified at the cecum. A plane was developed between the mesoappendix and the appendix. At which point, the camera was resited to the left lower quadrant, and we began to then transect the base of the appendix at the cecum using Endo NOE stapler. A 30-mm, multi-fire was used across the base and then across the mesoappendix. Hemostasis was obtained with Bovie cautery and time. The area was suctioned of clot. At which point, we retrieved the appendix from the abdomen. A small amount of purulent ascites, which was identified, was suctioned as well. The remainder of the area appeared atraumatic. We turned our attention then to removal of the port sites under direct visualization, and the port sites were then closed at the umbilicus using the 0 Vicryl which had been laid in pre-establishment of pneumoperitoneum. Once complete, each port site was irrigated and then closed with a running 4-0 Vicryl. The skin was cleaned. Sterile dressings were placed, which was Dermabond. This was after inoculation of the skin with local. Patient returned to Recovery in stable condition. All counts were correct postoperatively. MD TOM [id number]
[2018-09-16 15:05] VITALS: BP 150/70; PULSE 98; TEMP 98.3
--- NOTE | 2018-09-17 18:03 | PATH ---
Surgical Pathology Report Patient Name: MARIAH ACEVES Med. Rec. #: [id number] /Age/Gender: 1995 (Age: 22) / M Account: [id number] Location: [facility] MED/SURG Taken: 09/15/2018 Received: 09/16/2018 Reported: 09/17/2018 Physicians: Luther Lira M.D. Specimen(s) Received APPENDIX Clinical History Acute appendicitis Final Diagnosis APPENDIX, APPENDECTOMY: ACUTE APPENDICITIS AND PERIAPPENDICITIS Electronically Signed Inna Smiley M.D. Gross Description Received in formalin, labeled "appendix," is a 7 cm. in length vermiform appendix with a stapled margin of resection and moderate attached fat. The serosa is reilly-pardo with focal exudate. Sectioning reveals a focally hemorrhagic lumen. The wall of the appendix averages 0.2 cm. in thickness. [employer] sections are submitted in one cassette. /09/16/2018 saudi09/16/2018
== END 2018-09-16 15:37 | disposition home or self-care (01) ==
LOC: FER 18:21 → FM/S 21:54 → UNDOADMIN 21:54 → FM/S 21:58 → FASUSAT 21:58 → JSAMEDAYSX 09-15 13:30 → J8W 09-15 19:18 → FASUSAT 09-16 15:37
PROC: 0DTJ4ZZ Resection of Appendix, Percutaneous Endoscopic Approach (ICD-10-PCS; principal; 2018-09-14)
DX: K35.30 Acute appendicitis with localized peritonitis, without perforation or gangrene (principal); E05.90 Thyrotoxicosis, unspecified without thyrotoxic crisis or storm
CPT/HCPCS: 36415; 74177-TC; 80048; 80053; 81003; 81015; 83690; 85025; 85027; 85610; 86850; 86900; 86901; 87086; 88304-TC; 94010; 94760; 99283-25; J0131; J7030